=== PATIENT | male | born 1940 | race Two or more races ===

== ENCOUNTER 2020-07-18 12:23 | Observation (INO) | payer MEDICARE ==
[2020-07-18] MEDS ORDERED: Sodium Chloride 0.9% 10 ML Syringe FLUSH PRN (13:47)
[2020-07-18] MEDS ORDERED: Ondansetron 4 MG Tab.DIS PO PRN (13:47)
[2020-07-18] MEDS ORDERED: Melatonin 3 MG Tab PO PRN (13:47)
[2020-07-18] MEDS ORDERED: Ondansetron 4 MG/2 ML SDV IV PRN (13:47)
[2020-07-18] MEDS ORDERED: Magnesium Hydroxide 400 MG/5 ML Susp 30 ML Cup PO PRN (13:47)
[2020-07-18] MEDS ORDERED: Acetaminophen 325 MG Tab PO PRN (13:47)
--- NOTE | 2020-07-18 14:25 | PCM.HP.2 ---
H&P History of Present Illness - General Date of Service: 07/18/20 Admit Problem/Dx: Admission Diagnosis/Problem Admission Diagnosis/Problem Dizzy spells Source of Information: Patient, Provider History Limitations: Reports: No Limitations - History of Present Illness Initial Comments - Free Text/Narative: CC: Dizzy HPI: Lily presents to the emergency room today with episodic dizziness. He has had several episodes of severe dizziness/wooziness over the past 3 or 4 days. Symptoms have come on while he has been active and last for about 5 minutes before resolving. The episodes are so severe that he has to hold onto a wall or an object or a tree depending on what is handy. Without these objects he thinks he would fall over. The episodes come on very quickly and terminate almost as quickly. There is no associated headache, blurry vision, shortness of breath, chest pain or diaphoresis. He had never had episodes like this prior to the last few days. He does not think he has been overexerting himself. He thinks he has been eating pretty close to normal. He says that he drinks plenty of water. He has not had any fevers or chills. No change in bowel or bladder habits. He was initially seen in the walk-in clinic and then sent for direct admission and observation. His work-up in the clinic was fairly benign. He does have stage III kidney disease which is stable. EKG did not have ischemic changes. - Related Data Allergies/Adverse Reactions: Allergies Allergy/AdvReac Type Severity Reaction Status Date / Time No Known Allergies Allergy Verified 07/18/20 13:23 Home Medications: Home Meds Allopurinol [Zyloprim] 100 mg PO BID 07/18/20 [History] Aspirin [Adult Low Dose Aspirin EC] 1 tab PO DAILY 07/18/20 [History] Calcium Carb, Citrate/Vit D3 [Calcium + D3 ER Tablet] 1 tab PO DAILY 07/18/20 [History] Doxazosin [Doxazosin Mesylate] 2 mg PO DAILY 07/18/20 [History] Fenofibrate Nanocrystallized [Fenofibrate] 145 mg PO DAILY 07/18/20 [History] Glimepiride [Amaryl] 4 mg PO QAM 07/18/20 [History] Metoprolol Succinate [Toprol Xl] 100 mg PO DAILY 07/18/20 [History] Olmesartan Medoxomil 40 mg PO DAILY 07/18/20 [History] [place]-3/DHA/Epa/Fish Oil [[place]-3 Fish Oil 1,200 MG Sfgl] 1,200 mg PO DAILY 07/18/20 [History] Rosuvastatin Calcium 20 mg PO DAILY 07/18/20 [History] dilTIAZem HCL [Cardizem Cd] 180 mg PO DAILY 07/18/20 [History] hydrALAZINE [Apresoline] 25 mg PO DAILY 07/18/20 [History] sitaGLIPtin Phos/Metformin HCl [Janumet 50-1,000 MG] 1 tab PO DAILY 07/18/20 [History] Past Medical History Cardiovascular History: Reports: CAD, High Cholesterol, Hypertension, [place] Genitourinary History: Reports: Prostate Disorder Endocrine/Metabolic History: Reports: Diabetes, Type II Other Oncologic History: skin cancer on nose - Infectious Disease History Infectious Disease History: Reports: Chicken Pox, Influenza, Measles, Mumps - Past Surgical History Cardiovascular Surgical History: Reports: Coronary Artery Bypass, Coronary Artery Stent Musculoskeletal Surgical History: Reports: Arthroscopic Knee Social & Family History - Family History Cardiac: Reports: CAD - Tobacco Use Smoking Status *Q: Never Smoker - Caffeine Use Caffeine Use: Reports: Soda - Alcohol Use Alcohol Use History: No - Recreational Drug Use Recreational Drug Use: No H&P Review of Systems - Review of Systems: Review Of Systems: See Below Free Text/Narrative: A complete 12 point review of systems was obtained. Pertinent positives and negatives are noted in the history of present illness. All other systems were reviewed and were negative except as noted. Exam - Exam Exam: See Below - Vital Signs Vital Signs: Last Vital Signs Temp 35.5 C L 07/18/20 12:42 Pulse 76 07/18/20 12:42 Resp 15 07/18/20 12:42 BP 158/86 H 07/18/20 12:42 Pulse Ox 98 07/18/20 12:42 Orthostatic Blood Pressure [ 139/70 Standing] Orthostatic Blood Pressure [ 142/86 Sitting] Orthostatic Blood Pressure [ 130/71 Supine] Weight: 103.011 kg - Exam Quality Assessment: No: Supplemental Oxygen General: Alert, Oriented, Cooperative. No: Mild Distress HEENT: Conjunctiva Clear, Mucosa Moist & [place] Neck: Supple, Trachea Midline. No: JVD Lungs: Clear to Auscultation, Normal Respiratory Effort Cardiovascular: Regular Rate, Regular Rhythm, Systolic Murmur (Best at right upper sternal border consistent with aortic sclerosis/stenosis) GI/Abdominal Exam: Normal Bowel Sounds, Soft, Non-Tender, No Distention Back Exam: Normal Inspection. No: Muscle Spasm Extremities: Pedal Edema (Mild right leg and slightly greater on the left). No: Increased Warmth Skin: Warm, Dry Neuro Extensive - Mental Status: Alert, Oriented x3, Nl Response to Commands Neuro Extensive - Motor, Sensory, Reflexes: No: Dysarthria, Abnormal Motor, Tremor Psychiatric: Alert, Normal Affect - Patient Data Imaging Impressions Last 24 hrs: Creatinine 1.85 Potassium 4.2 Hemoglobin 12.3 EKG INTERPRETATION EKG Date: 07/18/20 Rhythm: NSR Rate (Beats/Min): 73 [place]: LAD-Left [place] Deviation P-Wave: Present QRS: LBBB ST-T: Normal QT: Normal Comparison: NA - No Prior EKG Sepsis Event Note - Evaluation Sepsis Screening Result: No Definite Risk - Focused Exam Vital Signs: Vital Signs Temp Pulse Resp BP Pulse Ox 07/18/20 12:42 35.5 C L 76 15 158/86 H 98 *Q Meaningful Use (ADM) - VTE Risk Assess *Q Each Risk Factor Represents 1 Point: Obesity ( BMI > 25 kg/m2) Total Score 1 Point Risk Factors: 1 Each Risk Factor Represents 2 Points: None Total Score 2 Point Risk Factors: 0 Each Risk Factor Represents 3 Points: Age 75 Years or Greater Total Score 3 Point Risk Factors: 3 Each Risk Factor Represents 5 Points: None Total Score 5 Point Risk Factors: 0 Venous Thromboembolism Risk Factor Score *Q: 4 - Problem List (1) Dizziness SNOMED Code(s): 491618158, 219282441 ICD Code: R42 - DIZZINESS AND GIDDINESS Status: Acute Current Visit: Yes (2) Coronary artery disease SNOMED Code(s): 86428320 ICD Code: I25.10 - ATHSCL HEART DISEASE OF [place] CORONARY ARTERY W/O ANG PCTRS Status: Chronic Current Visit: Yes Qualifiers: Coronary Disease-Associated Artery/Lesion type: [place] artery [place] vs. transplanted heart: [place] heart Associated angina: without angina Qualified Code(s): I25.10 - Atherosclerotic heart disease of [place] coronary artery without angina pectoris (3) Stage III chronic kidney disease SNOMED Code(s): 242646660 ICD Code: N18.30 - CHRONIC KIDNEY DISEASE, STAGE 3 UNSPECIFIED Status: Chronic Current Visit: Yes Qualifiers: Chronic kidney disease stage 3 subtype: stage 3b (GFR 30-44) Qualified Code(s): N18.32 - Chronic kidney disease, stage 3b (4) Diabetes mellitus type 2 with complications SNOMED Code(s): 55568050, 214940049 ICD Code: E11.8 - TYPE 2 DIABETES MELLITUS WITH UNSPECIFIED COMPLICATIONS Status: Chronic Current Visit: Yes Problem List Initiated/Reviewed/Updated: Yes Orders Last 24hrs: Active Orders 24 hr Category Date Time Status Patient Status [ADT] Routine ADT 07/18/20 13:47 Active Antiembolic Devices [RC] .Routine Care 07/18/20 13:47 Active Blood Glucose Check, Bedside [RC] WITHMEALSANDBED Care 07/18/20 13:47 Active Cardiac Monitoring [RC] CONTINUOUS Care 07/18/20 13:49 Active Intake and Output [RC] QSHIFT Care 07/18/20 13:47 Active Notify Provider Vital Signs [RC] ASDIRECTED Care 07/18/20 13:47 Active Oxygen Therapy [RC] PRN Care 07/18/20 13:47 Active Up ad [place] [RC] ASDIRECTED Care 07/18/20 13:47 Active VTE/DVT Education [RC] Per Unit Routine Care 07/18/20 13:47 Active Vital Signs [RC] Q4H Care 07/18/20 13:47 Active Consistent Carbohydrate Diet [DIET] Diet 07/18/20 Dinner Active [place] wo Cont [MR] Routine Exams 07/18/20 13:41 Taken Acetaminophen [TylenoL] Med 07/18/20 13:47 Active 650 mg PO Q4H PRN Aspirin [Adult Low Dose Aspirin EC] Med 07/19/20 09:00 Ordered 1 tab PO DAILY Calcium Carb, Citrate/Vit D3 [Calcium + D3 ER Tablet] Med 07/19/20 09:00 Ordered 1 tab PO DAILY Docusate Sodium/Sennosides [Senna Plus] Med 07/18/20 13:47 Active 1 tab PO BID PRN Doxazosin [Cardura] Med 07/19/20 09:00 Ordered 2 mg PO DAILY Fenofibrate Nanocrystallized [Fenofibrate] Med 07/19/20 09:00 Ordered 145 mg PO DAILY Glimepiride [Amaryl] Med 07/19/20 09:00 Ordered 4 mg PO QAM Magnesium Hydroxide [Milk of Magnesia] Med 07/18/20 13:47 Active 30 ml PO Q12H PRN Melatonin Med 07/18/20 13:47 Active 9 mg PO BEDTIME PRN Metoprolol Succinate [Toprol Xl] Med 07/19/20 09:00 Ordered 100 mg PO DAILY Olmesartan Medoxomil [Olmesartan Medoxomil] Med 07/19/20 09:00 Ordered 40 mg PO DAILY [place]-3/DHA/Epa/Fish Oil [[place]-3 Fish Oil 1,200 MG Med 07/19/20 09:00 Ordered Sfgl] 1,200 mg PO DAILY Ondansetron [Zofran ODT] Med 07/18/20 13:47 Active 4 mg PO Q6H PRN Ondansetron [Zofran] Med 07/18/20 13:47 Active 4 mg IV Q6H PRN Rosuvastatin Calcium [Rosuvastatin Calcium] Med 07/19/20 09:00 Ordered 20 mg PO DAILY Sodium Chloride 0.9% [Saline Flush] Med 07/18/20 13:47 Active 10 ml FLUSH ASDIRECTED PRN allopurinoL [Zyloprim] Med 07/18/20 21:00 Active 100 mg PO BID dilTIAZem HCL [Cardizem Cd] Med 07/19/20 09:00 Ordered 180 mg PO DAILY hydrALAZINE [Apresoline] Med 07/19/20 09:00 Ordered 25 mg PO DAILY sitaGLIPtin Phos/Metformin HCl [Janumet 50-1,000 MG] Med 07/19/20 09:00 Ordered 1 tab PO DAILY Saline Lock Insert [OM.PC] Urgent Oth 07/18/20 13:47 Ordered Sequential Compression Device [OM.PC] Routine Oth 07/18/20 13:47 Ordered Resuscitation Status Routine Resus Stat 07/18/20 13:47 Ordered Medication Orders Acetaminophen (Tylenol) 650 mg PO Q4H PRN PRN Reason: Pain (Mild 1-3)/fever Allopurinol (Zyloprim) 100 mg PO BID [place] Magnesium Hydroxide (Milk Of Magnesia) 30 ml PO Q12H PRN PRN Reason: Constipation Melatonin (Melatonin) 9 mg PO BEDTIME PRN PRN Reason: sleep Non-Formulary Medication (Aspirin [Adult Low Dose Aspirin Ec]) 1 tab PO DAILY [place] Non-Formulary Medication (Calcium Carb, Citrate/Vit D3 [Calcium + D3 Er Tablet]) 1 tab PO DAILY [place] Non-Formulary Medication (Diltiazem Hcl [Cardizem Cd]) 180 mg PO DAILY [place] Non-Formulary Medication (Doxazosin [Cardura]) 2 mg PO DAILY [place] Non-Formulary Medication (Fenofibrate Nanocrystallized [Fenofibrate]) 145 mg PO DAILY [place] Non-Formulary Medication (Glimepiride [Amaryl]) 4 mg PO QAM [place] Non-Formulary Medication (Hydralazine [Apresoline]) 25 mg PO DAILY [place] Non-Formulary Medication (Metoprolol Succinate [Toprol Xl]) 100 mg PO DAILY [place] Non-Formulary Medication (Olmesartan Medoxomil [Olmesartan Medoxomil]) 40 mg PO DAILY [place] Non-Formulary Medication ([place]-3/Dha/Epa/Fish Oil [[place]-3 Fish Oil 1,200 Mg Sfgl]) 1,200 mg PO DAILY [place] Non-Formulary Medication (Rosuvastatin Calcium [Rosuvastatin Calcium]) 20 mg PO DAILY [place] Non-Formulary Medication (Sitagliptin Phos/Metformin Hcl [Janumet 50-1,000 Mg]) 1 tab PO DAILY [place] Ondansetron HCl (Zofran) 4 mg IV Q6H PRN PRN Reason: Nausea/Vomiting Ondansetron HCl (Zofran Odt) 4 mg PO Q6H PRN PRN Reason: Nausea able to take PO Senna/Docusate Sodium (Senna Plus) 1 tab PO BID PRN PRN Reason: Constipation Sodium Chloride (Saline Flush) 10 ml FLUSH ASDIRECTED PRN PRN Reason: Keep Vein Open Assessment/Plan Comment:: ASSESSMENT AND PLAN - Dizziness-several episodes of significant dizziness over the past few days. Seems to be most consistent with either a tacky dysrhythmia or bradycardia dysrhythmia or potentially hypoperfusion. Less likely this could be posterior stroke or hypoglycemia. No other obvious causes. Examination is benign and there is no nystagmus. Medication effect seems unlikely with acute nature and quick return to normal. Orthostatic vital signs were normal. -Cardiac monitoring -MRA of the brain -Check blood sugars 4 times a day and if symptoms -Consider Holter monitor if no dysrhythmia noted overnight Coronary artery disease-history of stenting, [place] and bypass surgery about 20 years ago. No active anginal symptoms. He is quite active and has no limitations. -Continue medical management Stage III chronic kidney disease-creatinine near baseline. Type 2 diabetes mellitus-controlled by history. Complicated by neuropathy. -Continue home medications Maintenance issues - - DVT prophylaxis -mechanical - GI prophylaxis -not indicated - Nutrition -consistent carbohydrate - Moran catheter -not indicated CODE STATUS -full code Admission justification -patient will be referred observation status for close monitoring overnight and expedited work-up with significant dizzy episodes. Disposition -I would anticipate discharge home after the hospital stay Primary care physician -primary care is in [place] Joe Green M.D. - Mortality Measure Prognosis:: Good
--- NOTE | 2020-07-18 14:43 | CRLMR ---
INDICATION: Dizzy TECHNIQUE: [id number] magnetic resonance angiography of the [place] of [place] arteries. FINDINGS: Intracranial segments of the internal carotid arteries tortuous basilar artery appear widely patent. Hypoplastic right A-1 segment is a normal variant. The anterior middle and posterior cerebral arteries their proximal branches are shown to be patent. Well-formed, symmetric sized, bilateral posterior communicating arteries are demonstrated. There is motion artifact on the images. However, there is no evidence of an aneurysm over 3 mm (resolution limits of MRA). No high-flow AV malformation or high-grade intracranial stenosis. Impression : 1. No large vessel occlusion or high-grade stenosis of proximal cerebral arteries. 2. 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 Dictated by Adithya Dorado MD @ Jul 18 2020 2:34PM Signed by Dr. Adithya Dorado @ Jul 18 2020 2:41PM
--- NOTE | 2020-07-18 17:06 | PCM.HP.2 ---
H&P History of Present Illness - General Date of Service: 07/18/20 Admit Problem/Dx: Admission Diagnosis/Problem Admission Diagnosis/Problem Dizzy spells Source of Information: Patient History Limitations: Reports: No Limitations - History of Present Illness Initial Comments - Free Text/Narative: Mr. Sam presents today as a direct admission from [facility] in [place]. He has had two 'dizzy spells' in the last week in which he lost his balance and would have reportedly fallen, had he not had a tree or wall to grab. He has not had this problem in the past. The spells come on instantly without warning, last about 5-10 minutes and then go away as suddenly. His first spell was while walking through some [place] on his way out hunting and the other occurred in his home when he was up and about moving but not exerting himself. His medication and dietary intake have been unchanged since May. He denies any new respiratory, neurologic, or cardiac symptoms. Onset of Symptoms: Reports: Sudden Symptom Onset Date: 07/13/20 Duration of Symptoms: Reports: Minutes: (5-10), Intermittent, Recurring, Resolved Prior to Arrival Location: Reports: Other (dizzyness) Improves with: Reports: None Worsens with: Reports: None Context: Denies: Sick Contact, Activity/Exercise, Lifting, Exertion, Rest, Trauma, Travel Associated Symptoms: Reports: Other (loss of balance). Denies: Confusion, Chest Pain, Cough, Diaphoresis, Fever/Chills, Headaches, Loss of Appetite, Malaise, Nausea/Vomiting, Rash, Seizure, Shortness of Breath - Related Data Allergies/Adverse Reactions: Allergies Allergy/AdvReac Type Severity Reaction Status Date / Time No Known Allergies Allergy Verified 07/18/20 13:23 Home Medications: Home Meds Allopurinol [Zyloprim] 100 mg PO BID 07/18/20 [History] Aspirin [Adult Low Dose Aspirin EC] 1 tab PO DAILY 07/18/20 [History] Calcium Carb, Citrate/Vit D3 [Calcium + D3 ER Tablet] 1 tab PO DAILY 07/18/20 [History] Doxazosin [Doxazosin Mesylate] 2 mg PO DAILY 07/18/20 [History] Fenofibrate Nanocrystallized [Fenofibrate] 145 mg PO DAILY 07/18/20 [History] Glimepiride [Amaryl] 4 mg PO QAM 07/18/20 [History] Metoprolol Succinate [Toprol Xl] 100 mg PO DAILY 07/18/20 [History] Olmesartan Medoxomil 40 mg PO DAILY 07/18/20 [History] [place]-3/DHA/Epa/Fish Oil [[place]-3 Fish Oil 1,200 MG Sfgl] 1,200 mg PO DAILY 07/18/20 [History] Rosuvastatin Calcium 20 mg PO DAILY 07/18/20 [History] dilTIAZem HCL [Cardizem Cd] 180 mg PO DAILY 07/18/20 [History] hydrALAZINE [Apresoline] 25 mg PO DAILY 07/18/20 [History] sitaGLIPtin Phos/Metformin HCl [Janumet 50-1,000 MG] 1 tab PO DAILY 07/18/20 [History] Past Medical History Cardiovascular History: Reports: CAD, High Cholesterol, Hypertension, UT Genitourinary History: Reports: Prostate Disorder Endocrine/Metabolic History: Reports: Diabetes, Type II Other Oncologic History: skin cancer on nose - Infectious Disease History Infectious Disease History: Reports: Chicken Pox, Influenza, Measles, Mumps - Past Surgical History Cardiovascular Surgical History: Reports: Coronary Artery Bypass, Coronary Artery Stent Musculoskeletal Surgical History: Reports: Arthroscopic Knee Social & Family History - Family History Cardiac: Reports: CAD - Tobacco Use Smoking Status *Q: Never Smoker - Caffeine Use Caffeine Use: Reports: Soda - Recreational Drug Use Recreational Drug Use: No H&P Review of Systems - Review of Systems: Review Of Systems: See Below Free Text/Narrative: see also HPI General: Reports: No Symptoms. Denies: Fever, Chills, Malaise, Weakness, Fatigue, Night Sweats, Diaphoresis, Decreased Appetite, Weight Loss, Weight Gain HEENT: Reports: No Symptoms, Sinus Congestion (when laying down). Denies: Dysphasia, Headaches, Hearing Changes Pulmonary: Reports: No Symptoms. Denies: Shortness of Breath, Wheezing, Pleuritic Chest Pain, Cough, Sputum, Hemoptysis Cardiovascular: Reports: Edema. Denies: Chest Pain, Palpitations, Dyspnea on Exertion, Orthopnea, Lightheadedness, Syncope, Claudication Gastrointestinal: Denies: Abdominal Pain, Anorexia, Constipation, Diarrhea, Decreased Appetite, Difficulty Swallowing, Nausea, Vomiting Genitourinary: Reports: No Symptoms Musculoskeletal: Reports: No Symptoms Skin: Reports: No Symptoms. Denies: Cyanosis, Jaundice, Diaphoresis, Dryness, Bruising, Pruritis, Erythema, Wound, Change in Color, Change in Hair/Nails Psychiatric: Reports: No Symptoms. Denies: Confusion, Depression, Mood Lability, Anxiety, Agitation Neurological: Reports: No Symptoms, Numbness (diabetic peripheral neruopathy, sciatica). Denies: Confusion, Dizziness (currently asymptomatic from admitting complaint), Headache, Seizure, Syncope, Tremors, Trouble Speaking, Difficulty Walking, Weakness, Change in Speech, Gait Disturbance Hematologic/Lymphatic: Reports: No Symptoms. Denies: Anemia, Easy Bruising, Swollen Glands Immunologic: Reports: No Symptoms. Denies: Anaphylaxis, Food Allergy, Environmental Allergy, Seasonal Allergy, Grass Allergy, Mold Allergy, Pollen Allergy Exam - Exam Exam: See Below - Vital Signs Vital Signs: Last Vital Signs Temp 96.3 F L 07/18/20 16:16 Pulse 72 07/18/20 16:16 Resp 16 07/18/20 16:16 BP 144/78 H 07/18/20 16:16 Pulse Ox 94 L 07/18/20 16:16 Orthostatic Blood Pressure [ 139/70 Standing] Orthostatic Blood Pressure [ 142/86 Sitting] Orthostatic Blood Pressure [ 130/71 Supine] Weight: 227 lb 1.6 oz - Exam General: Alert, Oriented, Cooperative HEENT: Conjunctiva Clear, EACs Clear, Hearing Intact, Mucosa Moist & Jet. No: Other (no nystagmus) Neck: Supple, Trachea Midline. No: Lymphadenopathy, Thyromegaly Lungs: Clear to Auscultation, Normal Respiratory Effort. No: Decreased Breath Sounds, Crackles, Rales, Rhonchi, Rub, Stridor, Wheezing Cardiovascular: Regular Rate, Regular Rhythm, Diastolic Murmur GI/Abdominal Exam: Normal Bowel Sounds, Soft, Non-Tender, No Distention, No Abnormal Bruit (Male) Exam: Deferred Rectal (Males) Exam: Deferred Back Exam: Normal Inspection, Full Range of Motion Extremities: Pedal Edema Skin: Warm, Dry, Intact Neurological: Strength Equal Bilateral, Normal Gait, Normal Speech, Normal Tone Neuro Extensive - Mental Status: Alert, Oriented x3, Normal Mood/Affect, Normal Cognition, Memory Intact Neuro Extensive - Motor, Sensory, Reflexes: CN II-XII Intact, Normal Gait Psychiatric: Alert, Normal Affect, Normal Mood Sepsis Event Note - Evaluation Sepsis Screening Result: No Definite Risk - Focused Exam Vital Signs: Vital Signs Temp Pulse Pulse Resp BP Pulse Ox 07/18/20 16:16 96.3 F L 72 16 144/78 H 94 L 07/18/20 13:47 77 139/70 07/18/20 12:42 95.9 F L 76 15 158/86 H 98 *Q Meaningful Use (ADM) - VTE Risk Assess *Q Each Risk Factor Represents 1 Point: Swollen Legs, Current, Obesity ( BMI > 25 kg/m2) Total Score 1 Point Risk Factors: 2 Each Risk Factor Represents 3 Points: Age 75 Years or Greater Total Score 3 Point Risk Factors: 3 Each Risk Factor Represents 5 Points: None Total Score 5 Point Risk Factors: 0 - Tobacco (TOB) Core Measure 1:1 Practical Counseling Performed: N/A (never smoked) Problem List Initiated/Reviewed/Updated: Yes Orders Last 24hrs: Active Orders 24 hr Category Date Time Status Patient Status [ADT] Routine ADT 07/18/20 13:47 Active Antiembolic Devices [RC] .Routine Care 07/18/20 13:47 Active Blood Glucose Check, Bedside [RC] WITHMEALSANDBED Care 07/18/20 13:47 Active Cardiac Monitoring [RC] CONTINUOUS Care 07/18/20 13:49 Active Intake and Output [RC] QSHIFT Care 07/18/20 13:47 Active Notify Provider Vital Signs [RC] ASDIRECTED Care 07/18/20 13:47 Active Oxygen Therapy [RC] PRN Care 07/18/20 13:47 Active Up ad [place] [RC] ASDIRECTED Care 07/18/20 13:47 Active VTE/DVT Education [RC] Per Unit Routine Care 07/18/20 13:47 Active Vital Signs [RC] Q4H Care 07/18/20 13:47 Active Consistent Carbohydrate Diet [DIET] Diet 07/18/20 Dinner Active Acetaminophen [TylenoL] Med 07/18/20 13:47 Active 650 mg PO Q4H PRN Alogliptin Benzoate [Alogliptin] Med 07/19/20 09:00 Active 12.5 mg PO DAILY Aspirin [Halfprin] Med 07/19/20 09:00 Active 81 mg PO DAILY Calcium Carbonate/Vitamin D3 [Caltrate 600+D 1500 MG- Med 07/19/20 09:00 Active 400 Units] 1 tab PO DAILY Diltiazem [Cardizem CD] Med 07/19/20 09:00 Active 180 mg PO DAILY Docusate Sodium/Sennosides [Senna Plus] Med 07/18/20 13:47 Active 1 tab PO BID PRN Doxazosin [Cardura] Med 07/19/20 09:00 Active 2 mg PO DAILY Fenofibrate,Micronized [Fenofibrate] Med 07/19/20 09:00 Active 134 mg PO DAILY Fish Oil/[place]-3 Fatty Acids [Fish Oil] Med 07/19/20 09:00 Active 1 gm PO DAILY Glimepiride [Amaryl] Med 07/19/20 09:00 Active 4 mg PO DAILY Losartan [Cozaar] Med 07/19/20 09:00 Active 100 mg PO DAILY Magnesium Hydroxide [Milk of Magnesia] Med 07/18/20 13:47 Active 30 ml PO Q12H PRN Melatonin Med 07/18/20 13:47 Active 9 mg PO BEDTIME PRN Metoprolol Succinate [Toprol XL] Med 07/19/20 09:00 Active 100 mg PO DAILY Ondansetron [Zofran ODT] Med 07/18/20 13:47 Active 4 mg PO Q6H PRN Ondansetron [Zofran] Med 07/18/20 13:47 Active 4 mg IV Q6H PRN Rosuvastatin [Crestor] Med 07/19/20 09:00 Active 20 mg PO DAILY Sodium Chloride 0.9% [Saline Flush] Med 07/18/20 13:47 Active 10 ml FLUSH ASDIRECTED PRN allopurinoL [Zyloprim] Med 07/18/20 21:00 Active 100 mg PO BID hydrALAZINE [Apresoline] Med 07/19/20 09:00 Active 25 mg PO DAILY metFORMIN [Glucophage] Med 07/19/20 08:00 Active 500 mg PO BIDMEALS Saline Lock Insert [OM.PC] Urgent Oth 07/18/20 13:47 Ordered Sequential Compression Device [OM.PC] Routine Oth 07/18/20 13:47 Ordered Resuscitation Status Routine Resus Stat 07/18/20 13:47 Ordered Medication Orders Acetaminophen (Tylenol) 650 mg PO Q4H PRN PRN Reason: Pain (Mild 1-3)/fever Allopurinol (Zyloprim) 100 mg PO BID [facility] Alogliptin Benzoate (Alogliptin) 12.5 mg PO DAILY [facility] Aspirin (Halfprin) 81 mg PO DAILY [facility] Calcium Carbonate (Caltrate 600+D 1500 Mg-400 Units) 1 tab PO DAILY [facility] Diltiazem HCl (Cardizem Cd) 180 mg PO DAILY [facility] Doxazosin Mesylate (Cardura) 2 mg PO DAILY [facility] Fenofibrate (Fenofibrate) 134 mg PO DAILY [facility] Fish Oil (Fish Oil) 1 gm PO DAILY [facility] Glimepiride (Amaryl) 4 mg PO DAILY [facility] Hydralazine HCl (Apresoline) 25 mg PO DAILY [facility] Losartan Potassium (Cozaar) 100 mg PO DAILY [facility] Magnesium Hydroxide (Milk Of Magnesia) 30 ml PO Q12H PRN PRN Reason: Constipation Melatonin (Melatonin) 9 mg PO BEDTIME PRN PRN Reason: sleep Metformin HCl (Glucophage) 500 mg PO BIDMEALS [facility] Metoprolol Succinate (Toprol Xl) 100 mg PO DAILY [facility] Ondansetron HCl (Zofran) 4 mg IV Q6H PRN PRN Reason: Nausea/Vomiting Ondansetron HCl (Zofran Odt) 4 mg PO Q6H PRN PRN Reason: Nausea able to take PO Rosuvastatin Calcium (Crestor) 20 mg PO DAILY [facility] Senna/Docusate Sodium (Senna Plus) 1 tab PO BID PRN PRN Reason: Constipation Sodium Chloride (Saline Flush) 10 ml FLUSH ASDIRECTED PRN PRN Reason: Keep Vein Open Assessment/Plan Comment:: ASSESSMENT AND PLAN - Dizziness-several episodes of significant dizziness over the past few days. Seems to be most consistent with either a tacky dysrhythmia or bradycardia dysrhythmia or potentially hypoperfusion. Less likely this could be posterior stroke or hypoglycemia. No other obvious causes. Examination is benign and there is no nystagmus. Medication effect seems unlikely with acute nature and quick return to normal. Orthostatic vital signs were normal. -Cardiac monitoring -MRA of the brain is negative -Check blood sugars 4 times a day and if symptomatic -Consider Holter monitor outpatient, if no dysrhythmia noted overnight Coronary artery disease-history of stenting, UT and bypass surgery about 20 years ago. No active anginal symptoms. He is quite active and has no limitations. He also follows with cardiology annually. -Continue medical management Stage III chronic kidney disease-creatinine near baseline. Type 2 diabetes mellitus-controlled by history. Complicated by neuropathy. -Continue home medications Maintenance issues - - DVT prophylaxis -mechanical - GI prophylaxis -not indicated - Nutrition -consistent carbohydrate - Moran catheter -not indicated CODE STATUS -full code Admission justification -patient will be referred observation status for close monitoring overnight and expedited work-up with significant dizzy episodes. Disposition -I would anticipate discharge home after the hospital stay Primary care physician -primary care is in [place] - Mortality Measure Prognosis:: Good
[2020-07-18] MEDS: Allopurinol 100 MG Tab PO SCH (20:42)
[2020-07-19] MEDS ORDERED: metFORMIN 500 MG Tab PO SCH (08:00)
[2020-07-19] MEDS: Allopurinol 100 MG Tab PO SCH (08:31)
[2020-07-19] MEDS ORDERED: Diltiazem 180 MG Cap.CD PO SCH (09:00)
[2020-07-19] MEDS ORDERED: Losartan 50 MG Tab PO SCH (09:00)
[2020-07-19] MEDS ORDERED: Fish Oil/Omega-3 Fatty Acids 1 Gm Cap PO SCH (09:00)
[2020-07-19] MEDS ORDERED: Doxazosin 4 MG Tab PO SCH (09:00)
[2020-07-19] MEDS ORDERED: Fenofibrate,Micronized 67 MG Cap PO SCH (09:00)
[2020-07-19] MEDS ORDERED: Metoprolol Succinate 50 MG Tab.ER PO SCH (09:00)
[2020-07-19] MEDS ORDERED: Glimepiride 2 MG Tab PO SCH (09:00)
[2020-07-19] MEDS ORDERED: Aspirin 81 MG Tab.EC PO SCH (09:00)
[2020-07-19] MEDS ORDERED: Rosuvastatin 10 MG Tab PO SCH (09:00)
[2020-07-19] MEDS ORDERED: hydrALAZINE 25 MG Tab PO SCH (09:00)
[2020-07-19] MEDS ORDERED: Calcium Carbonate/Vitamin D3 1500 MG-400 Units Tab PO SCH (09:00)
--- NOTE | 2020-07-19 10:30 | PCM.DCSUM1 ---
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 He was admitted from the clinic for observation and expedited work-up. Diagnosis: Stroke: No - Discharge Data Discharge Date: 07/19/20 Discharge Disposition: Home, Self-Care 01 Condition: Good - Referral to Home Health Primary Care Physician: PCP None - Discharge Diagnosis/Problem(s) (1) Near syncope SNOMED Code(s): 203992645 ICD Code: R55 - SYNCOPE AND COLLAPSE Status: Acute (2) Dizziness SNOMED Code(s): 411483472, 261510648 ICD Code: R42 - DIZZINESS AND GIDDINESS Status: Acute (3) Coronary artery disease SNOMED Code(s): 96521611 ICD Code: I25.10 - ATHSCL HEART DISEASE OF [place] CORONARY ARTERY W/O ANG PCTRS Status: Chronic Qualifiers: Coronary Disease-Associated Artery/Lesion type: [place] artery [place] vs. transplanted heart: [place] heart Associated angina: without angina Qualified Code(s): I25.10 - Atherosclerotic heart disease of [place] coronary artery without angina pectoris (4) Stage III chronic kidney disease SNOMED Code(s): 939767120 ICD Code: N18.30 - CHRONIC KIDNEY DISEASE, STAGE 3 UNSPECIFIED Status: Chronic Qualifiers: Chronic kidney disease stage 3 subtype: stage 3b (GFR 30-44) Qualified Code(s): N18.32 - Chronic kidney disease, stage 3b (5) Diabetes mellitus type 2 with complications SNOMED Code(s): 28064816, 086966875 ICD Code: E11.8 - TYPE 2 DIABETES MELLITUS WITH UNSPECIFIED COMPLICATIONS Status: Chronic - Patient Summary/Data Hospital Course: Lily presented initially to the clinic after several episodes of near syncope. His work-up in the clinic was unremarkable other than his stable stage III chronic kidney disease. There is no evidence for ischemia. Given the severity of his episodes and fairly frequent nature over the past few days he was sent to the hospital for observation and expedited work-up. It was felt that the most likely explanation was either tachycardia or bradycardia though he was in a sinus rhythm at the time of presentation. We did perform an MRA of the brain and there was no evidence for stenosis. We watched with a lunchroom monitor overnight and there were no dysrhythmias noted. Vital signs were stable. Blood sugars were acceptable other than one that was on the lower side of the normal range. Patient did not have any symptoms throughout the course of the hospital stay. He has been up and walking around and has remained symptom-free. There remains suspicion that this is related to a dysrhythmia though we did not captur e this and the patient has been asymptomatic. He feels well this morning and would like to go home. We did review potential causes for his symptoms and I think most likely this is a rhythm issue though I have not proven this. We did set him up for Holter monitor which will be placed prior to him going home. He will return if his symptoms recur. - Patient Instructions Diet: Usual Diet as Tolerated Activity: As Tolerated Showering/Bathing: May Shower Other/Special Instructions: 1. You were in the hospital for observation after several episodes of dizziness/near syncope. We did not determine the culprit for the symptoms. We did perform an MRI to assess the blood flow in your brain and this was normal with no evidence for blockage. Your blood sugars have been acceptable. Your vital signs have all been stable. I am most suspicious that you had a heart rhythm issues such as your heart was beating too fast or possibly too slow. I do recommend that we watch with a Holter monitor after hospital discharge. Hopefully this will show us the heart rhythm that I suspect caused your symptoms. You may resume your usual activities after hospital discharge. 2. Continue your usual home medications as previously prescribed. 3. Follow-up as needed if your symptoms return - Discharge Plan *PRESCRIPTION DRUG MONITORING PROGRAM REVIEWED*: Not Applicable *COPY OF PRESCRIPTION DRUG MONITORING REPORT IN PATIENT [place]: Not Applicable Home Medications: Home Meds Allopurinol [Zyloprim] 100 mg PO BID 07/18/20 [History] Aspirin [Adult Low Dose Aspirin EC] 1 tab PO DAILY 07/18/20 [History] Calcium Carb, Citrate/Vit D3 [Calcium + D3 ER Tablet] 1 tab PO DAILY 07/18/20 [History] Doxazosin [Cardura] 2 mg PO DAILY 07/18/20 [History] Fenofibrate Nanocrystallized [Fenofibrate] 145 mg PO DAILY 07/18/20 [History] Glimepiride [Amaryl] 4 mg PO QAM 07/18/20 [History] Metoprolol Succinate [Toprol Xl] 100 mg PO DAILY 07/18/20 [History] Olmesartan Medoxomil 40 mg PO DAILY 07/18/20 [History] [place]-3/DHA/Epa/Fish Oil [[place]-3 Fish Oil 1,200 MG Sfgl] 1,200 mg PO DAILY 07/18/20 [History] Rosuvastatin Calcium 20 mg PO DAILY 07/18/20 [History] dilTIAZem HCL [Cardizem Cd] 180 mg PO DAILY 07/18/20 [History] hydrALAZINE [Apresoline] 25 mg PO DAILY 07/18/20 [History] sitaGLIPtin Phos/Metformin HCl [Janumet 50-1,000 MG] 1 tab PO DAILY 07/18/20 [History] Oxygen Therapy Mode: Room Air Patient Handouts: Near-Syncope - Discharge Summary/Plan Comment DC Time >30 min.: No - Patient Data Vitals - Most Recent: Last Vital Signs Temp 96 C H 07/19/20 06:00 Pulse 77 07/19/20 08:34 Resp 16 07/19/20 06:00 BP 166/92 H 07/19/20 08:34 Pulse Ox 96 07/19/20 06:00 Orthostatic Blood Pressure [ 139/70 Standing] Orthostatic Blood Pressure [ 142/86 Sitting] Orthostatic Blood Pressure [ 130/71 Supine] Weight - Most Recent: 103.011 kg I&O - Last 24 hours: Intake & Output 07/18/20 07/19/20 07/19/20 22:59 06:59 14:59 Intake Total 920 400 Balance 920 400 Med Orders - Current: Current Medications Acetaminophen (Tylenol) 650 mg PO Q4H PRN PRN Reason: Pain (Mild 1-3)/fever Allopurinol (Zyloprim) 100 mg PO BID [facility] Last Admin: 07/19/20 08:31 Dose: 100 mg Documented by: Alogliptin Benzoate (Alogliptin) 12.5 mg PO DAILY [facility] Last Admin: 07/19/20 08:33 Dose: 12.5 mg Documented by: Aspirin (Halfprin) 81 mg PO DAILY [facility] Last Admin: 07/19/20 08:30 Dose: 81 mg Documented by: Calcium Carbonate (Caltrate 600+D 1500 Mg-400 Units) 1 tab PO DAILY [facility] Last Admin: 07/19/20 08:30 Dose: 1 tab Documented by: Diltiazem HCl (Cardizem Cd) 180 mg PO DAILY [facility] Last Admin: 07/19/20 08:33 Dose: 180 mg Documented by: Doxazosin Mesylate (Cardura) 2 mg PO DAILY [facility] Last Admin: 07/19/20 08:32 Dose: 2 mg Documented by: Fenofibrate (Fenofibrate) 134 mg PO DAILY [facility] Last Admin: 07/19/20 08:32 Dose: 134 mg Documented by: Fish Oil (Fish Oil) 1 gm PO DAILY [facility] Last Admin: 07/19/20 08:33 Dose: 1 gm Documented by: Glimepiride (Amaryl) 4 mg PO DAILY [facility] Last Admin: 07/19/20 08:33 Dose: 4 mg Documented by: Hydralazine HCl (Apresoline) 25 mg PO DAILY [facility] Last Admin: 07/19/20 08:31 Dose: 25 mg Documented by: Losartan Potassium (Cozaar) 100 mg PO DAILY [facility] Last Admin: 07/19/20 08:34 Dose: 100 mg Documented by: Magnesium Hydroxide (Milk Of Magnesia) 30 ml PO Q12H PRN PRN Reason: Constipation Melatonin (Melatonin) 9 mg PO BEDTIME PRN PRN Reason: sleep Metformin HCl (Glucophage) 500 mg PO BIDMEALS [facility] Last Admin: 07/19/20 08:31 Dose: 500 mg Documented by: Metoprolol Succinate (Toprol Xl) 100 mg PO DAILY [facility] Last Admin: 07/19/20 08:34 Dose: 100 mg Documented by: Ondansetron HCl (Zofran) 4 mg IV Q6H PRN PRN Reason: Nausea/Vomiting Ondansetron HCl (Zofran Odt) 4 mg PO Q6H PRN PRN Reason: Nausea able to take PO Rosuvastatin Calcium (Crestor) 20 mg PO DAILY [facility] Last Admin: 07/19/20 08:34 Dose: 20 mg Documented by: Senna/Docusate Sodium (Senna Plus) 1 tab PO BID PRN PRN Reason: Constipation Sodium Chloride (Saline Flush) 10 ml FLUSH ASDIRECTED PRN PRN Reason: Keep Vein Open
== END 2020-07-19 11:03 | disposition home or self-care (01) ==
LOC: JP.ICU 12:23
PROVIDERS: ADMIT Internal Medicine; ATTEND Internal Medicine
DX: R55 Syncope and collapse (principal); I25.10 Atherosclerotic heart disease of native coronary artery without angina pectoris; E11.22 Type 2 diabetes mellitus with diabetic chronic kidney disease; N18.32 Chronic kidney disease, stage 3b; I12.9 Hypertensive chronic kidney disease with stage 1 through stage 4 chronic kidney disease, or unspecified chronic kidney disease; E78.00 Pure hypercholesterolemia, unspecified; E11.40 Type 2 diabetes mellitus with diabetic neuropathy, unspecified; Z95.5 Presence of coronary angioplasty implant and graft; Z95.1 Presence of aortocoronary bypass graft; Z82.49 Family history of ischemic heart disease and other diseases of the circulatory system; Z79.899 Other long term (current) drug therapy; Z79.84 Long term (current) use of oral hypoglycemic drugs; Z79.82 Long term (current) use of aspirin
CPT/HCPCS: 70544; 82962; A9270; G0378; G0379; 99217; 99218